=== PATIENT | female | born 1995 | race Caucasian/White ===

== ENCOUNTER 2017-10-28 21:08 | Emergency (ER) | payer BC, OTHER ==
[~2017-10-28] VITALS: Ht 165.1 cm; Wt 71.6 kg
[2017-10-28 21:30] VITALS: TEMP 36.7; Ht 165.1 cm; Wt 71.6 kg
[2017-10-28] MEDS ORDERED: DiphenhydrAMINE HCL 50 MG/ML VIAL IV STA (21:39)
[2017-10-28] MEDS ORDERED: SODIUM CHLORIDE 0.9% 1000ML 1,000 ML IV STA (21:39)
[2017-10-28] MEDS ORDERED: KETOROLAC TROMETHAMINE 30 MG/ML VIAL IV STA (21:39)
[2017-10-28] MEDS ORDERED: PROCHLORPERAZINE 5 MG/ML 2 ML VIAL IV STA (21:39)
[2017-10-28] MEDS ORDERED: BCPILLS PO (21:39)
[2017-10-28] MEDS ORDERED: MAGNESIUM SULFATE 1GM / D5W 1 GM BAG IV STA (21:39)
--- NOTE | 2017-10-28 21:44 | EMERGENCY ROOM VISIT NOTE ---
History Report prepared by [place]: Satnam Guillaume Under the Supervision of: Dr. Raheel Bruce M.D. First contact with patient: 21:34 Chief Complaint: HEADACHE Stated Complaint: MIGRAINE, EVERYTHING HURTS History of Present Illness The patient is a 22 year old female who presents to the Emergency Room with complaints of an intermittent headache that started around started around 1700 yesterday. She says that she her parents know that she is here, and she does not want me to call them. The patient says that her headache started yesterday evening, and it persisted that night. She slept for 10 hours last night, and in the morning she felt better. The patient states that her headache came back around 5 and a half hours ago, and she thought food would make it go away but it did not. The patient notes that the headache starts at the base of her neck, and would come in waves. She adds that her face is a bit numb. The patient says that it hurts at the base of her neck when she moves her chin to her chest, and it hurts to move her head side to side. She notes that she has had a headache like this before, and had imaging done at home and was told it was tension- related. She was put on Valium and it made the headache better. She denies any abdominal pain. The patient notes no chance of or retaining a tampon. Source of History: patient Onset: 1700 yesterday Position: head Quality: ache, other (pain) Timing: intermittent Associated Symptoms: + neck pain, + numbness (facial), No abdominal pain Review of Systems See HPI for pertinent positives & negatives. A total of 10 systems reviewed and were otherwise negative. Past Medical & Surgical Medical Problems: (1) Anxiety (2) H/O Edwardo thyroiditis Family History No significant family history Social History Smoking Status: Never Smoker Alcohol Use: none Drug Use: none Marital Status: in relationship Housing Status: lives with friends Occupation Status: [employer] student Current/Historical Medications Scheduled Control Pills ( Control Pills), 1 TAB PO DAILY Sertraline Hcl (Zoloft), 12.5 MG PO DAILY Scheduled PRN Acetaminophen (Tylenol), 500 MG PO UD PRN for Headache or Pain Allergies Coded Allergies: No Known Allergies (Unverified , 04/15/15) Physical Exam Vital Signs Date Time Temp Pulse Resp B/P (MAP) Pulse Ox O2 Delivery O2 Flow Rate FiO2 10/28/17 23:04 66 16 101/66 99 10/28/17 21:30 36.7 82 18 124/77 99 Room Air Physical Exam GENERAL: Awake, alert, well-appearing, in no acute distress HENT: Normocephalic, atraumatic. Oropharynx unremarkable. EYES: Normal conjunctiva. Sclera non-icteric. NECK: Supple. No nuchal rigidity. FROM. No JVD. RESPIRATORY: Clear to auscultation. CARDIAC: Regular rate, normal rhythm. Extremities warm and well perfused. Pulses equal. ABDOMEN: Soft, non-distended. No tenderness to palpation. No rebound or guarding. No masses. RECTAL: Deferred. MUSCULOSKELETAL: Chest examination reveals no tenderness. The back is symmetrical on inspection without obvious abnormality. There is no CVA tenderness to palpation. No joint edema. LOWER EXTREMITIES: Calves are equal size bilaterally and non-tender. No edema. No discoloration. NEURO: Normal sensorium. No sensory or motor deficits noted. SKIN: No rash or jaundice noted. No evidence of meningitis or encephalitis on exam. Medical Decision & Procedures Medications Administered Medications (Trade) Dose Ordered Sig/Joana Route Start Time Stop Time Status Last Admin Dose Admin Sodium Chloride 1,000 ml @ 999 mls/hr Q1H1M STAT IV 10/28/17 21:39 10/28/17 22:39 DC 10/28/17 21:39 999 MLS/HR Ketorolac Tromethamine (Toradol Inj) 30 mg NOW STAT IV 10/28/17 21:39 10/28/17 21:42 DC 10/28/17 22:03 30 MG Diphenhydramine HCl (Benadryl Inj) 50 mg NOW STAT IV 10/28/17 21:39 10/28/17 21:42 DC 10/28/17 22:01 50 MG Prochlorperazine Edisylate (Compazine Inj) 5 mg NOW STAT IV 10/28/17 21:39 10/28/17 21:42 DC 10/28/17 22:01 5 MG Magnesium Sulfate (Magnesium Sulfate) 1 gm NOW STAT IV 10/28/17 21:39 10/28/17 21:42 DC 10/28/17 22:02 1 GM Dexamethasone Sodium Phosphate 10 mg/Syringe 2.5 ml @ 1 mls/min NOW STAT IV 10/28/17 22:15 10/28/17 22:17 DC 10/28/17 22:38 1 MLS/MIN ED Course 2133: Past medical records reviewed. The patient was evaluated in room A11B. A complete history and physical examination was performed. 2138: Magnesium Sulfate 1 gm IV, Compazine Inj 5 mg IV, Benadryl Inj 50 mg, Toradol Inj 30 mg IV, NSS 1000 ml @ 999 mls/hr IV. Medical Decision Differential diagnosis: Etiologies such as migraine headache, meningitis, sinusitis, CO exposure, ICH, SAH, infection, tumor, headache, sinus thrombosis, arterial dissection, as well as others were entertained. This is a 22-year-old female who presents emergency department complaining of headache. Patient has no evidence of meningitis or encephalitis on examination and the patient also refused my offer to call her parents. She was given normal saline bolus along Toradol Compazine Benadryl magnesium based on the [facility] headache algorithm. In addition the patient was also given Decadron. Repeat examination revealed much improvement the patient's symptoms. I do feel that the patient is well enough to be discharged home to follow-up with her primary care physician. Patient was in agreement with the treatment plan. I will note that the patient has had previous imaging of her head. Medication Reconcilliation Current Medication List: was personally reviewed by me Blood Pressure Screening Patient's blood pressure: Normal blood pressure Impression Primary Impression: Headache Scribe Attestation The scribe's documentation has been prepared under my direction and personally reviewed by me in its entirety. I confirm that the note above accurately reflects all work, treatment, procedures, and medical decision making performed by me. Departure Information Dispostion Home / Self-Care Referrals No Doctor, Assigned (PCP) Patient Instructions My [facility] Problem Qualifiers Primary Impression: Headache Headache type: unspecified Headache chronicity pattern: unspecified pattern Intractability: not intractable Qualified Codes: R51 - Headache
[2017-10-28] MEDS ORDERED: DEXAMETHASONE INJ 10 MG in SYRINGE 0 ML IV STA (22:15)
[2017-10-28] MEDS ORDERED: TYLOTC500 PO (22:18)
[2017-10-28] MEDS ORDERED: SERT1TAB72 PO (22:18)
[2017-10-28] MEDS ORDERED: DEXAMETHASONE **PF** INJ 10 MG/ML VIAL ONE (22:34)
[2017-10-28 23:04] VITALS: BP 101/66; PULSE 66; O2SAT 99
== END 2017-10-28 23:00 | disposition home or self-care (01) ==
LOC: C.EDB 21:09 → C.EDA 23:00
DX: R51 Headache (principal); F41.9 Anxiety disorder, unspecified